=== PATIENT | female | born 1940 | race Caucasian/White ===

== ENCOUNTER 2017-09-30 09:59 | Outpatient (CLI) | payer MEDICARE, BC | END 2017-09-30 10:00 | disposition home or self-care (01) | LOC: BICMAMMO 09:59 | PROVIDERS: ATTEND Internal Medicine | DX: Z12.31 Encounter for screening mammogram for malignant neoplasm of breast (principal); R92.1 Mammographic calcification found on diagnostic imaging of breast | CPT/HCPCS: 77063; 77067 ==

== ENCOUNTER 2018-05-27 09:23 | Observation (INO) | payer MEDICARE, BC ==
[2018-05-27 09:58] LABS: #Basophils 0.1 thou/uL (0.0-0.2); #Eosinphils 0.1 thou/uL (0.0-0.7); #Lymphocytes 1.7 thou/uL (1.20-3.40); #Monocytes 0.5 thou/uL (0.11-0.59); #Neutrophils 6.5 thou/uL (1.40-6.50); %Basophils 0.9 % (0.0-1.0); %Eosinophils 0.7 % (0.0-10.0); %Lymphocytes 19.4 % (21.0-51.0); %Monocytes 5.8 % (0.0-10.0); %Neutrophils 73.1 % (42.0-75.0); Hemoglobin 14.5 g/dL (12.0-16.0); Mean Corpuscular HGB CONC 32.7 g/dL (32.0-36.0); Mean Corpuscular Hemoglobin 27.8 pg (27.0-31.0); Mean Platelet Volume 7.7 fL (7.4-10.4); Platelet Count 342 thou/uL (130-400); RBC Distribution Width 12.5 % (11.5-14.5); Red Blood Cell (RBC) Count 5.21 mill/uL (4.20-5.40); White Blood Cell (WBC) Count 8.9 thou/uL (4.8-10.8)
[2018-05-27] MEDS ORDERED: Aspirin 325 MG TAB ONE (10:04)
[2018-05-27] MEDS ORDERED: Nitroglycerin 2% Ointment 1 INCH/1 GM Packet ONE (10:04)
[2018-05-27 10:12] LABS: ALT (SGPT) 13 U/L (8-55); AST (SGOT) 13 U/L (5-34); Albumin 4.7 g/dL (3.4-4.8); Alkaline Phosphatase 55 U/L (40-150); Anion Gap 14 mmol/L (10-20); BUN (Urea Nitrogen) 13 mg/dL (9.8-20.1); Bilirubin, Total 0.5 mg/dL (0.2-1.2); Calc. Creatinine Clearance 0 mL/min (70-130); Calcium 9.7 mg/dL (7.8-10.44); Carbon Dioxide 26 mmol/L (23-31); Chloride 104 mmol/L (98-107); Estimated GFR-MDRD 75; Globulin 2.6 g/dL (2.4-3.5); Glucose 139 mg/dL (83-110); Lipase 24 U/L (8-78); Potassium 3.8 mmol/L (3.5-5.1); Protein, Total 7.3 g/dL (6.0-8.3); Sodium 140 mmol/L (136-145)
[2018-05-27 10:14] LABS: Troponin I Less than 0.010 ng/mL (< 0.028)
--- NOTE | 2018-05-27 11:15 | RAD ---
CHEST ONE VIEW: HISTORY: Chest pain. COMPARISON: Radiograph from 2013. FINDINGS: The lungs are without focal confluent air space consolidation, pneumothorax, or effusion. The cardia c silhouette and mediastinal contours are similar. No pneumothorax. No effusion. No acute osseous abnormality. IMPRESSION: No acute intrathoracic abnormality. POS: [facility]
[2018-05-27 12:39] VITALS: BMI 22.4
[2018-05-27 13:45] LABS: Troponin I Less than 0.010 ng/mL (< 0.028)
[2018-05-27] MEDS ORDERED: Acetaminophen 325 MG TAB PO PRN (13:57)
[2018-05-27] MEDS ORDERED: Ondansetron PF 4 MG/2 ML Vial IVP PRN (13:57)
[2018-05-27] MEDS ORDERED: Ondansetron ODT 4 MG TAB PO PRN (13:57)
[2018-05-27] MEDS ORDERED: Nicotine 14 MG PATCH TD SCH (14:00)
[2018-05-27 16:40] LABS: Troponin I Less than 0.010 ng/mL (< 0.028)
[2018-05-27] MEDS ORDERED: Nitroglycerin 2% Ointment 1 INCH/1 GM Packet TOP SCH ×2 (17:00→22:00)
--- NOTE | 2018-05-27 21:39 | PRG ---
DATE OF SERVICE: 05/27/2018 CARDIOLOGY FOLLOWUP NOTE RESSON FOR CONSULTATION: Chest pain and pressure. PRIMARY GARAGE DOOR INSTALLER: Dr. Nelson Erazo. HISTORY OF PRESENT ILLNESS: Ms. Calli Orourke is a very pleasant 77-year-old woman who had an episode of pressure in her chest going across her chest, it seemed to get somewhat better with nitrates. Sh ariana came here and she had some aspirin and additional nitro paste also belched and had resolution of di scomfort. She is feeling fine now. She was brought in for observation and stress testing tomorrow i n observation status. ALLERGIES: None. MEDICATIONS: At home, patient takes aspirin 81 mg a day, amlodipine 2.5 mg a day, atorvastatin 20 mg a day, Coreg 6.25 mg a day, hydrochlorothiazide 12.5 mg a day, tramadol, and vitamin D. PHYSICAL EXAMINATION: GENERAL: This is a pleasant elderly woman resting comfortably in no distress. VITAL SIGNS: Blood pressure is 156/70, pulse 70, regular. LUNGS: Clear of any rhonchi. There is some mild expiratory wheezing. CARDIAC: Normal S1, normal S2. There is no murmur, rub, or gallop. ABDOMEN: Soft, nontender. EXTREMITIES: No clubbing or cyanosis. There is no edema. SKIN: Warm and dry. IMAGING: Cardiac enzymes are all negative. EKG normal sinus rhythm, some very minimal nonspecific S T changes in V5 and V6. Recent electrocardiogram done 03/11/2018. These changes were also present a t that time. Cardiac enzymes are negative. ASSESSMENT: 1. Chest pressure, possibly angina versus gastrointestinal. 2. Catheterization in 2004, minimal nonobstructive coronary artery disease. PLAN: Stress testing tomorrow. The patient thinks she might be able to walk on a treadmill if could be converted to a nuclear medicine stress imaging. I doubtful, the patient can walk on the treadmil l, but the patient states she would like to try to walk on a treadmill first.
[2018-05-27] MEDS: Nitroglycerin 2% Ointment 1 INCH/1 GM Packet TOP SCH (22:26)
--- NOTE | 2018-05-28 02:32 | HP ---
DATE OF ADMISSION: 05/27/2018 PRIMARY CARE PHYSICIAN: MARTA Shields. CHIEF COMPLAINT: Chest pain. HISTORY OF PRESENT ILLNESS: Ms. Orourke is a pleasant 77-year-old female with a past medical history of COPD, hypertension, hyperlipidemia, mild carotid stenosis, who had presented to the ER with chest pain that is more of a pressure-like sensation in her anterior chest, this had started Saturday morning . She states the pain resolves after belching. She had taken a single dose of her sublingual nitrog lycerin at home; however, denies any improvement after dose. She had denied any shortness of breath, nausea, vomiting or diarrhea or no abdominal pain. She denies any lightheadedness or fever or chill s. She states that she was slightly lightheaded this morning; however, this resolved after 2 seconds with no syncope. She states she had seen Dr. Erazo in the past and she underwent an echocardiog joie; however, she reports no findings at that time. She will be admitted under observation for her s ymptoms of chest pain. PAST MEDICAL HISTORY: Hypertension, hyperlipidemia, COPD, and mild carotid stenosis. PAST SURGICAL HISTORY: Cholecystectomy, appendectomy, hysterectomy, and shoulder surgery about 15 ye ars ago. SOCIAL HISTORY: Denies any alcohol or drug use, but does admit to half pack a day smoker. FAMILY HISTORY: Her mother and father are of colon cancer. One brother of cancer of his esophagus. ALLERGIES: No known drug allergies. HOME MEDICATIONS: 1. Amlodipine 2.5 mg daily. 2. Xanax 0.25 mg p.o. at bedtime. 3. Atorvastatin 20 mg p.o. daily. 4. Aspirin 81 mg daily. 5. Hydrochlorothiazide 12.5 mg daily. 6. Carvedilol 6.25 mg p.o. b.i.d. 7. Tramadol 50 mg p.o. b.i.d. p.r.n. pain. 8. Vitamin D3 5000 units p.o. daily. 9. Ibuprofen 400 mg p.o. p.r.n. pain. REVIEW OF SYSTEMS: Constitutional: Denies any fever or chills. Denies any weight loss or weight ga in. Eyes: Denies any eye pain, eye redness or vision changes. ENT: Denies any sore throat, nosebl eeds or problems swallowing. Cardiovascular: Does report chest pain, substernal, no radiation, no p alpitations. Respiratory: Denies shortness of breath, denies cough. Gastrointestinal: Denies abdo harvey pain. Denies nausea, vomiting or diarrhea. Genitourinary: Denies any dysuria or frequency or urgency. Musculoskeletal: Denies any back pain, neck pain, or weakness. Skin: Denies any rash, l esions or bruising. Neurologic: Denies any focal weakness or sensory changes. Psychiatric: Denies any anxiety or depression. PHYSICAL EXAMINATION: VITAL SIGNS: BP 156/70, pulse 70, respirations 18, temperature 98.7 degrees Fahrenheit, O2 saturatio n 96% on room air. GENERAL: The patient is alert and oriented x3, no acute distress noted. HEENT: Head is normocephalic, atraumatic. Eyes: Pupils equal, reactive to light. Extraocular musc les intact. Oropharynx is normal. NECK: Without bruit or JVD. CARDIAC: Regular rate and rhythm. Normal S1, S2. No murmurs or rubs. LUNGS: Clear to auscultation bilaterally. No wheezes, no rhonchi, no rales. ABDOMEN: Soft, nontender, nondistended, bowel sounds present. EXTREMITIES: Warm without edema. Radial and pedal pulses 2+ bilaterally. Strength 5+ bilaterally u pper and lower extremities. NEUROLOGIC: Cranial nerves II-XII intact. No focal deficits noted. PSYCHIATRIC: Pleasant mood and affect. LABORATORY DATA: WBC 8.9, RBC 5.21, hemoglobin 14.5, platelet 342. Sodium 140, potassium 3.8, BUN 1 3, creatinine 0.76, GFR 75, glucose 139, AST 13, ALT 13. Troponin less than 0.010 x3, CK-MB 1.0, lip ase 24. DIAGNOSTIC IMAGING: Chest x-ray revealed no acute intrathoracic abnormality. ASSESSMENT AND PLAN: 1. Chest pain, will rule out cardiac causes with stress test and echocardiogram. Serial troponins n egative, less than 0.010 x3. She will be managed medically and continue home medications including c arvedilol 6.25 mg twice daily, hydrochlorothiazide 12.5 mg daily, aspirin 81 mg, amlodipine 2.5 mg da marek. Depending the patient progress and workup results, may consult Cardiology Services for further evaluation of symptoms. 2. Hypertension. We will monitor vital signs closely and continue the patient's home medications. 3. Hyperlipidemia. Continue patient's home dose of Lipitor 20 mg daily. 4. Gastrointestinal prophylaxis with Protonix 40 mg p.o. daily. 5. Deep venous thrombosis prophylaxis with Lovenox daily. 6. Nicotine abuse. The patient education on smoking cessation, start nicotine patch daily. 7. Code status: FULL CODE. 8. Disposition and further medical management pending the patient's progress and workup of patient's chest pain.
[2018-05-28] MEDS: Nitroglycerin 2% Ointment 1 INCH/1 GM Packet TOP SCH (04:25)
[2018-05-28 04:46] LABS: #Eosinphils 0.2 thou/uL (0.0-0.7); #Lymphocytes 2.9 thou/uL (1.20-3.40); #Monocytes 0.8 thou/uL (0.11-0.59); #Neutrophils 5.7 thou/uL (1.40-6.50); %Basophils 0.4 % (0.0-1.0); %Eosinophils 2.1 % (0.0-10.0); %Lymphocytes 29.9 % (21.0-51.0); %Monocytes 8.3 % (0.0-10.0); %Neutrophils 59.3 % (42.0-75.0); Hemoglobin 13.3 g/dL (12.0-16.0); Mean Corpuscular HGB CONC 31.8 g/dL (32.0-36.0); Mean Corpuscular Hemoglobin 28.5 pg (27.0-31.0); Mean Corpuscular Volume 89.5 fL (78.0-98.0); Mean Platelet Volume 7.8 fL (7.4-10.4); Platelet Count 357 thou/uL (130-400); RBC Distribution Width 12.6 % (11.5-14.5); Red Blood Cell (RBC) Count 4.67 mill/uL (4.20-5.40); White Blood Cell (WBC) Count 9.6 thou/uL (4.8-10.8)
[2018-05-28 05:17] LABS: Anion Gap 11 mmol/L (10-20); BUN (Urea Nitrogen) 12 mg/dL (9.8-20.1); Calc. Creatinine Clearance 54 mL/min (70-130); Calcium 9.3 mg/dL (7.8-10.44); Carbon Dioxide 27 mmol/L (23-31); Chloride 107 mmol/L (98-107); Estimated GFR-MDRD 73; Glucose 91 mg/dL (83-110); Potassium 3.6 mmol/L (3.5-5.1); Sodium 141 mmol/L (136-145)
[2018-05-28] MEDS ORDERED: Enoxaparin Sodium 40 MG/0.4 ML SYRINGE SC SCH (09:00)
[2018-05-28] MEDS ORDERED: Aspirin 81 mg Enteric Coated Tablet PO SCH (09:00)
[2018-05-28] MEDS ORDERED: traMADol HCl 50 MG TAB PO PRN (11:36)
--- NOTE | 2018-05-28 11:37 | NM ---
MYOCARDIAL PERFUSION EVALUATION: INDICATIONS: History of chest pain. COMPARISON: 05/26/2013 RADIOPHARMACEUTICAL: Technetium 99m sestamibi, 33 millicuries, IV with stress. Technetium 99m sestamibi, 10.2 millicuries, IV with rest. FINDINGS: When comparing the rest and stress images, there are predominantly fixed regions of mild reduced acti vity seen involving the apex of the left ventricle, likely related to either apical thinning or overl hardik soft tissue attenuation. No definite reversible myocardial perfusion defect is evident. There is normal wall motion and thickening. The estimated LVEF is 63%. IMPRESSION: 1. No scintigraphic evidence to suggest reversible myocardial ischemia. 2. Mild sized region of predominantly fixed defect involving the apex of the left ventricle, suspici ous for overlying soft tissue attenuation or some mild apical thinning. POS: [facility]
[2018-05-28 11:45] VITALS: TEMP 97.6
[2018-05-28] MEDS ORDERED: Atorvastatin Calcium 20 MG TAB PO SCH (12:00)
[2018-05-28] MEDS ORDERED: Carvedilol 6.25 MG TAB PO SCH ×3 (12:00→21:00)
[2018-05-28] MEDS ORDERED: Hydrochlorothiazide 25 MG TAB PO SCH (12:00)
[2018-05-28 13:56] VITALS: BP 131/61
[2018-05-28] MEDS ORDERED: ALPRAZolam 0.25 MG TAB PO SCH (21:00)
--- NOTE | 2018-05-29 03:37 | DIS ---
DATE OF ADMISSION: 05/27/2018 DATE OF DISCHARGE: 05/28/2018 DISCHARGE DIAGNOSES: 1. Chest pain, noncardiac, resolved. 2. Hypertension, stable. 3. Hyperlipidemia, stable. 4. Nicotine abuse, stable. CONSULTATIONS: Cardiology services, Dr. Erazo and Dr. Westbrook. PERTINENT LABORATORY AND DIAGNOSTIC FINDINGS: WBC 9.6, RBC 4.67, hemoglobin 13.3, platelet count 357 . Sodium 141, potassium 3.6, creatinine 0.77, glucose 91. Troponin less than 0.010 x3. Alkaline ph osphatase 55, AST 13, ALT 13, lipase 24. Chest x-ray showed no acute intrathoracic abnormality. Nuclear medicine cardiac stress test showed no evidence to suggest a reversible myocardial ischemia, mild sized region of fixed defect involving the apex of the left ventricle, suspicious for overlying soft tissue attenuation or small mild apical thinning. HOSPITAL COURSE: Ms. Orourke is a pleasant, 77-year-old female. She had presented to [facility] with some complaints of chest pain. Her initial workup included a chest x-ray, wh ich was unremarkable. She had reported her primary beach lifeguard with Dr. Erazo, he was consulted during hospital course for further evaluation of symptoms, Dr. Westbrook came and evaluated the patient . Serial troponins were obtained and found to be less than 0.010 x3. Cardiology services recommende d stress testing, which she underwent, it was found to be unremarkable, there was no wall motion abno rmality, and no evidence to suggest a reversible myocardial ischemia. There was a fixed defect invol ving the apex of the left ventricle, however, this was shown to be suspicious for a soft tissue atten uation or some mild apical thinning. The patient was seen and examined prior to discharge, she had n o further complaints of chest pain, shortness of breath or abdominal pain. She had also underwent an echocardiogram; however, the results are pending. She will have follow up with Dr. Erazo as out patient for further results. She was instructed to continue her regular home medications and followu p with her PCP in 1-2 weeks. She had verbalized her understanding and denied any symptoms at that ti nd. She was found to be medically stable for discharge home on 05/28/2018. DISCHARGE MEDICATIONS: 1. Aspirin 81 mg daily. 2. Atorvastatin 20 mg oral daily. 3. Xanax 0.25 mg oral at bedtime. 4. Hydrochlorothiazide 12.5 mg oral daily. 5. Carvedilol 6.25 mg oral b.i.d. 6. Tramadol 50 mg oral twice daily as needed for pain. 7. Ibuprofen 400 mg oral as needed for pain. 8. Vitamin D3 at 5000 units oral daily. 9. Benzonatate 100 mg oral twice daily for cough. FOLLOWUP: The patient is to follow up with her primary care physician, Dr. Tulio Contreras in 1-2 weeks, she is also to follow up with her primary beach lifeguard, Dr. Erazo in 2-4 weeks. CONDITION ON DISCHARGE: Stable. DIET: Healthy heart. ACTIVITY: As tolerated. DISPOSITION: Home on 05/28/2018.
[2018-05-29] MEDS ORDERED: Aspirin 81 mg Enteric Coated Tablet PO SCH (09:00)
[2018-05-29] MEDS ORDERED: Hydrochlorothiazide 25 MG TAB PO SCH (09:00)
[2018-05-29] MEDS ORDERED: Atorvastatin Calcium 20 MG TAB PO SCH ×2 (09:00)
[2018-05-29] MEDS ORDERED: Non-Formulary Item 1 EACH (Hydrochlorothiazide [Hydrochlorothiazide] 12.5 MG) PO SCH (09:00)
--- NOTE | 2018-05-30 11:10 | STRESS ---
Acquisition Time: 2018-05-28 08:59:14 Total Exercise Time: 00:04:02 Test Indications: CHEST PAIN Medications: Protocol: JUANA Max HR: 129 BPM 88% of Pred: 145 BPM Max BP: 180/070 mmHG Max Work Load: 7.0 METS RESTING ECG: NORMAL SINUS RHYTHM AT 71 BPM WITH NON-SPECIFIC ST SEGMENT CHANGES SYMPTOMS: DYSPNEA ON EXERTION NORMAL BP RESPONSE ECTOPY: NONE ECG STRESS: NO SIGNIFICANT CHANGES INTERPRETATION: INDETERMINATE GXT/AWAIT NUCLEAR IMAGES FOR DEFINITIVE DIAGNOSIS COMMENTS: NON-DIAGNOSTIC DUE TO RESTING ST CHANGES Confirmed by ASA ECKERT ([id number]), fashion editor GINO MOCK ([id number]) on 05/30/2018 11:09:39 AM Referred By: MD Dawna ARBOLEDA Confirmed By:ASA ECKERT
== END 2018-05-28 16:55 | disposition home or self-care (01) ==
LOC: SCSER 09:23 → 2SW 11:27
PROVIDERS: ADMIT Internal Medicine Infectious Disease; ATTEND Internal Medicine Infectious Disease
DX: R07.89 Other chest pain (principal); J44.9 Chronic obstructive pulmonary disease, unspecified; I25.10 Atherosclerotic heart disease of native coronary artery without angina pectoris; F17.210 Nicotine dependence, cigarettes, uncomplicated; I10 Essential (primary) hypertension; E78.5 Hyperlipidemia, unspecified; I65.29 Occlusion and stenosis of unspecified carotid artery; Z79.82 Long term (current) use of aspirin; Z79.899 Other long term (current) drug therapy
CPT/HCPCS: 71045; 78452; 80048; 80053; 82553; 83690; 84484 ×2; 85025 ×2; 93005; 93017; 93306; 94760; 99285; 99406; A9500; G0378; 36415; 90471; 90662; G0008; J1650

== ENCOUNTER 2019-10-26 09:58 | Outpatient (CLI) | payer MEDICARE, BC ==
--- NOTE | 2019-10-26 10:33 | ULT ---
Exam: Thyroid ultrasound HISTORY: Thyroid nodule FINDINGS: Thyroid isthmus measures 0.25 cm Right thyroid lobe measures 1.4 x 1.5 x 4.2 cm Left thyroid lobe measures 1.0 x 1.0 x 3.9 cm Thyroid nodules: Single solid nodule right thyroid lobe measures 0.9 x 0.8 x 0.9 cm IMPRESSION: 1. Single solid nodule in the right thyroid lobe with a tire is level of TR 4, moderately suspicious. Follow-up imaging in one year. CODE T
== END 2019-10-26 09:59 | disposition home or self-care (01) ==
LOC: BICULT 09:58
PROVIDERS: ATTEND Internal Medicine Cardiovascular Disease
DX: E07.89 Other specified disorders of thyroid (principal); E04.1 Nontoxic single thyroid nodule
CPT/HCPCS: 76536

== ENCOUNTER 2022-01-18 08:15 | Outpatient (CLI) | payer MEDICARE, BC | END 2022-01-18 08:16 | disposition home or self-care (01) | LOC: BICULT 08:15 | PROVIDERS: ATTEND Student in an Organized Health Care Education/Training Program | DX: Z12.31 Encounter for screening mammogram for malignant neoplasm of breast (principal); M81.0 Age-related osteoporosis without current pathological fracture; M85.88 Other specified disorders of bone density and structure, other site; E04.1 Nontoxic single thyroid nodule | CPT/HCPCS: 76536; 77063; 77067; 77080 ==

== ENCOUNTER 2023-05-08 08:08 | Outpatient (CLI) | payer MEDICARE, BC ==
[2023-05-08] MEDS ORDERED: Iopamidol 370 76% 100 ML VIAL ONE (09:25)
== END 2023-05-08 08:09 | disposition home or self-care (01) ==
LOC: BICCT 08:08
PROVIDERS: ATTEND Student in an Organized Health Care Education/Training Program
DX: I65.23 Occlusion and stenosis of bilateral carotid arteries (principal)
CPT/HCPCS: 70498; 82565; Q9967

== ENCOUNTER 2024-04-13 09:02 | Outpatient (CLI) | payer MEDICARE | END 2024-04-13 09:03 | disposition home or self-care (01) | LOC: BICMAMMO 09:02 → BICULT 09:03 | PROVIDERS: ATTEND Student in an Organized Health Care Education/Training Program | DX: Z12.31 Encounter for screening mammogram for malignant neoplasm of breast (principal); Z78.0 Asymptomatic menopausal state; E04.1 Nontoxic single thyroid nodule; M81.0 Age-related osteoporosis without current pathological fracture; M85.88 Other specified disorders of bone density and structure, other site | CPT/HCPCS: 76536; 77063; 77067; 77080 ==

== ENCOUNTER 2024-07-17 10:32 | Outpatient (CLI) | payer MEDICARE | END 2024-07-17 10:33 | disposition home or self-care (01) | LOC: BICRAD 10:32 | PROVIDERS: ATTEND Internal Medicine Rheumatology | DX: M81.0 Age-related osteoporosis without current pathological fracture (principal); M41.86 Other forms of scoliosis, lumbar region; M41.34 Thoracogenic scoliosis, thoracic region | CPT/HCPCS: 72070 ==

== ENCOUNTER 2025-02-14 13:44 | Emergency (ER) | payer MEDICARE ==
[2025-02-14] MEDS ORDERED: Dexamethasone 4 MG TAB ONE (14:42)
== END 2025-02-14 15:04 | disposition home or self-care (01) ==
LOC: ERS 13:44
DX: J02.9 Acute pharyngitis, unspecified (principal); I10 Essential (primary) hypertension; E78.00 Pure hypercholesterolemia, unspecified; F17.210 Nicotine dependence, cigarettes, uncomplicated; Z79.899 Other long term (current) drug therapy; Z79.82 Long term (current) use of aspirin
CPT/HCPCS: 87081; 87430; 99283; J8540

== ENCOUNTER 2025-03-11 02:26 | Inpatient (IN) | payer MEDICARE ==
[2025-03-11 03:11] LABS: #Basophils 0.07 10x3/uL (0.0-0.2); #Eosinophils 0.13 10x3/uL (0.0-0.7); #Monocytes 1.14 10x3/uL (0.11-0.59); #Neutrophils 13.31 10x3/uL (1.40-6.50); %Basophils 0.4 % (0.0-1.0); %Eosinophils 0.8 % (0.0-10.0); %Lymphocytes 11.5 % (21.0-51.0); %Monocytes 6.9 % (0.0-10.0); %Neutrophils 80.0 % (42.0-75.0); Hematocrit 39.7 % (36.0-47.0); Hemoglobin 13.0 g/dL (12.0-16.0); Mean Corpuscular Hemoglobin 27.7 pg (27.0-31.0); Mean Corpuscular Volume 84.5 fL (78.0-98.0); Platelet Count 325 10x3/uL (130-400); Red Blood Cell (RBC) Count 4.70 mill/uL (4.20-5.40); White Blood Cell (WBC) Count 16.62 10x3/uL (4.8-10.8)
[2025-03-11] MEDS ORDERED: Lidocaine Viscous Sol 2% 15 ml UD Cup ONE (03:29)
[2025-03-11] MEDS ORDERED: Mag-Al 1200 mg/1200 mg/30 ML UDCUP ONE (03:29)
[2025-03-11] MEDS ORDERED: Famotidine/PF 20 mg/2ml Vial ONE (03:30)
[2025-03-11 04:23] LABS: ALT (SGPT) 9 U/L (Less than 34); AST (SGOT) 16 U/L (11-34); Albumin 3.9 g/dL (3.1-4.5); Alkaline Phosphatase 49 U/L (40-110); Anion Gap 15 mmol/L (10-20); BUN (Urea Nitrogen) 15 mg/dL (9.8-20.1); Bilirubin, Total 0.6 mg/dL (0.3-1.2); Calc. Creatinine Clearance 0 mL/min (70-130); Calcium 9.1 mg/dL (7.8-10.44); Carbon Dioxide 22 mmol/L (23-31); Chloride 105 mmol/L (98-107); Globulin 2.6 g/dL (2.4-3.5); Glucose 126 mg/dL (83-110); Lipase 17 U/L (8-78); Potassium 4.0 mmol/L (3.5-5.1); Sodium 138 mmol/L (136-145)
[2025-03-11] MEDS ORDERED: Ondansetron PF 4 MG/2 ML Vial ONE ×2 (04:56→20:52)
[2025-03-11] MEDS ORDERED: Acetaminophen 325 MG TAB PO PRN (06:01)
[2025-03-11] MEDS ORDERED: Ondansetron PF 4 MG/2 ML Vial IVP PRN ×2 (06:01→21:29)
[2025-03-11] MEDS ORDERED: hydrALAZINE 20 MG/ML VIAL SLOW IVP PRN (06:01)
[2025-03-11 12:11] VITALS: BMI 20.7
[2025-03-11] MEDS ORDERED: Iopamidol 370 76% 100 ML VIAL ONE (12:45)
[2025-03-11] MEDS ORDERED: PROPOFOL 20 ML ONE (18:27)
[2025-03-11] MEDS ORDERED: Rocuronium Bromide 10 MG/ML (10ML VIAL) ONE (18:28)
[2025-03-11] MEDS ORDERED: Lidocaine 1% PF 5 ML VIAL ONE (18:28)
[2025-03-11] MEDS ORDERED: Bupivacaine 0.25% HCL 30 ML VIAL ONE (18:50)
[2025-03-11] MEDS ORDERED: CEFAZOLIN 2 GM VIAL ONE (18:50)
[2025-03-11] MEDS ORDERED: PHENYLEPHRINE-NS 100 MCG/ML 10 ML SYRINGE ONE (20:36)
[2025-03-11] MEDS ORDERED: SUGAMMADEX SODIUM 200 MG/2 ML VIAL ONE (20:53)
[2025-03-11] MEDS ORDERED: HYDROcodone/Acetaminophen 10/325 mg Tablet PO PRN (21:29)
[2025-03-11] MEDS ORDERED: Dextrose 50% Abboject 50 ML SYRINGE SLOW IVP PRN (21:29)
[2025-03-11] MEDS ORDERED: Calcium Carbonate 500 MG ChewTAB PO PRN (21:29)
[2025-03-11] MEDS ORDERED: Glucagon 1 MG/ML KIT IM PRN (21:29)
[2025-03-11] MEDS: Ketorolac Tromethamine 30 MG (1 mL) VIAL IVP SCH (23:05)
[2025-03-12] MEDS: D5 1/2 NS w/20 mEq KCL 1,000 ML IV SCH (00:46)
[2025-03-12 04:39] LABS: #Basophils 0.05 10x3/uL (0.0-0.2); #Eosinophils 0.03 10x3/uL (0.0-0.7); #Monocytes 0.83 10x3/uL (0.11-0.59); #Neutrophils 9.78 10x3/uL (1.40-6.50); %Basophils 0.4 % (0.0-1.0); %Eosinophils 0.2 % (0.0-10.0); %Lymphocytes 14.1 % (21.0-51.0); %Monocytes 6.6 % (0.0-10.0); %Neutrophils 78.3 % (42.0-75.0); Hematocrit 34.2 % (36.0-47.0); Hemoglobin 11.0 g/dL (12.0-16.0); Mean Corpuscular Hemoglobin 27.9 pg (27.0-31.0); Mean Corpuscular Volume 86.8 fL (78.0-98.0); Platelet Count 285 10x3/uL (130-400); Red Blood Cell (RBC) Count 3.94 mill/uL (4.20-5.40); White Blood Cell (WBC) Count 12.50 10x3/uL (4.8-10.8)
[2025-03-12 05:15] LABS: Anion Gap 3 mmol/L (10-20); BUN (Urea Nitrogen) 11 mg/dL (9.8-20.1); Calc. Creatinine Clearance 47 mL/min (70-130); Calcium 8.0 mg/dL (7.8-10.44); Carbon Dioxide 24 mmol/L (23-31); Chloride 115 mmol/L (98-107); Glucose 122 mg/dL (83-110); Potassium 4.0 mmol/L (3.5-5.1); Sodium 138 mmol/L (136-145)
[2025-03-12] MEDS: Famotidine 20 MG TAB PO SCH (09:41)
[2025-03-12 12:49] VITALS: BP 133/63; TEMP 97.9
== END 2025-03-12 15:20 | disposition home or self-care (01) | DRG 399 ==
LOC: ERS 02:26 → 2NO 06:16
PROVIDERS: ADMIT Surgery; ATTEND Surgery
PROC: 0DTJ4ZZ Resection of Appendix, Percutaneous Endoscopic Approach (ICD-10-PCS; principal; 2025-03-11)
PROC: 3E03329 Introduction of Other Anti-infective into Peripheral Vein, Percutaneous Approach (ICD-10-PCS; 2025-03-11)
DX: K35.80 Unspecified acute appendicitis (principal); I10 Essential (primary) hypertension; E78.5 Hyperlipidemia, unspecified; I25.10 Atherosclerotic heart disease of native coronary artery without angina pectoris; F41.9 Anxiety disorder, unspecified; M81.0 Age-related osteoporosis without current pathological fracture; I73.9 Peripheral vascular disease, unspecified; Z98.890 Other specified postprocedural states; Z90.49 Acquired absence of other specified parts of digestive tract; Z90.79 Acquired absence of other genital organ(s); Z79.899 Other long term (current) drug therapy; Z79.82 Long term (current) use of aspirin
CPT/HCPCS: 36415; 74177; 80048; 80053; 83690; 84484; 85025; 88304; 93005; 93306; 96365; 96375; J0169; J0665; J0694; J1308; J1885; J2270; J2405; J2543; J2704; J3010; J3480; J7120; Q9967